=== PATIENT | female | born 1980 | race Caucasian/White ===

== ENCOUNTER 2020-03-23 10:27 | Emergency (ER) | payer OTHER | END 2020-03-23 10:48 | disposition home or self-care (01) | LOC: JVIRT 10:27 | DX: Z11.59 Encounter for screening for other viral diseases (principal) | CPT/HCPCS: C9803; Q3014-GT; U0003 ==

== ENCOUNTER 2020-06-21 15:46 | Emergency (ER) | payer OTHER | END 2020-06-21 17:13 | disposition home or self-care (01) | LOC: JVIRT 15:46 | DX: Z20.822 Contact with and (suspected) exposure to COVID-19 (principal) | CPT/HCPCS: C9803; G2251-GT; Q3014-GT; U0003 ==

== ENCOUNTER 2020-07-04 14:23 | Emergency (ER) | payer OTHER | END 2020-07-04 16:00 | disposition home or self-care (01) | LOC: JVIRT 14:23 | DX: R51.9 Headache, unspecified (principal); Z20.822 Contact with and (suspected) exposure to COVID-19 | CPT/HCPCS: C9803; G2251-GT; U0003 ==

== ENCOUNTER 2020-12-02 13:30 | Emergency (ER) | payer OTHER ==
[2020-12-03 15:08] LABS: SARS-CoV-2 NAA Not Detected (Not Detected)
== END 2020-12-02 15:28 | disposition home or self-care (01) ==
LOC: JVIRT 13:30
DX: Z20.822 Contact with and (suspected) exposure to COVID-19 (principal)
CPT/HCPCS: C9803; Q3014-GT; U0003; U0005